=== PATIENT | female | born 1975 ===

== ENCOUNTER 2020-07-10 09:59 | Emergency (ER) | payer SELFPAY ==
[2020-07-10 10:50] VITALS: BP 129/78
--- NOTE | 2020-07-10 11:27 | Emergency Department Report ---
Upper Extremity - HPI Chief Complaint: Extremity Injury, Upper Stated Complaint: INJURY THUMB Time Seen by Provider: 07/10/20 11:13 Upper Extremity: Right Thumb Occurred When: Today Symptoms: Yes Pain with Movement, Yes Numbness (Right thumb), Yes Swelling, Yes Bruising/Ecchymosis, No Deformity, No Limited Range of Movement, No Weakness, No Laceration or Abrasion Other History: 44-year-old female presents to the ER today with complaints of swelling, bruising, and mild numbness to the distal palmar surface of the right thumb. Patient states that she was at work today when she started with a little bit of irritation to the palmar surface of her right thumb and then after a couple minutes noticed that it became bruised and more swollen. She does not recall any injury or any particular bites. 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 She states that she is concerned it may be related to a spider bite. ED Review of Systems ROS: Stated complaint: INJURY THUMB Other details as noted in HPI Comment: All other systems reviewed and negative Musculoskeletal: other (Right thumb pain) Skin: change in color, other (Bruising and swelling to right thumb) ED Past Medical Hx - Past Medical History Previous Medical History?: No - Surgical History Past Surgical History?: No - Social History Smoking Status: Unknown if ever smoked - Medications Home Medications: Home Medications Medication Instructions Recorded Confirmed Last Taken Type Ibuprofen [Motrin] 800 mg PO Q8HR PRN #30 tablet 07/10/20 Unknown Rx cephALEXin [Keflex] 500 mg PO Q8HR #15 cap 07/10/20 Unknown Rx Upper Extremity Exam - Exam General: Vital signs noted. No distress. Alert and acting appropriately. Head and Torso: No Chest/Lungs Abnormality Hand: Yes Digit Tenderness (Tenderness to palpation to the distal palmar surface of the right thumb with mild to moderate amount of bruising to the area and moderate tenderness; no apparent induration, fluctuance or warmth noted.), Yes Normal ROM in Digit(s) (She has full range of motion of the right thumb.), No Digit(s) Deformity CMS Exam: Yes Broken Skin, Yes Normal Distal Pulses, Yes Normal Capillary Refill, Yes Normal Distal Sensation ED Course Vital Signs 07/10/20 10:49 Temperature 98.5 F Pulse Rate 59 L Respiratory 18 Rate Blood Pressure 129/78 [Right] O2 Sat by Pulse 99 Oximetry ED Medical Decision Making - Radiology Data Radiology results: report reviewed Patient: KYLEE RAYO MR#: [id number] : 1975 Acct:[id number] Age/Sex: 44 / F ADM Date: 07/10/20 Loc: ED Attending Dr: Ordering Physician: DIEUDONNE CASTELLANO Date of Service: 07/10/20 Procedure(s): XR finger(s) 2+V RT Accession Number(s): [id number] cc: DIEUDONNE CASTELLANO Fluoro Time In Minutes: RIGHT FINGERS 3 VIEWS INDICATION: thumb bruising. COMPARISON: None. IMPRESSION: No acute osseous or soft tissue abnormality. No significant DJD. Signer Name: Manuel Aranda Jr, MD Signed: 07/10/2020 12:18 PM Workstation Name: [id number] Transcribed By: TTR Dictated By: MANUEL ARANDA JR, MD Electronically Authenticated By: MANUEL ARANDA JR, MD Signed Date/Time: 07/10/201217 DD/ 17 TD/TT: - Medical Decision Making 1229: Pt reports non traumatic bruising,pain and swelling to mcgrath surface of distal right thumb. She works as painter helper. She does not recall being bitten but is concerned for possible spider bite. Xray shows nothing acute. Exact cause of bruising unclear. Will cover with abx as precaution. Discussed xray results and tx plan with patient. She is well appearing, not toxic and not in any distress. Her VS stable. Patient was stable at time of d/c. Critical care attestation.: If time is entered above; I have spent that time in minutes in the direct care of this critically ill patient, excluding procedure time. ED Disposition Clinical Impression: Superficial bruising of thumb Disposition: DC-01 TO HOME OR SELFCARE Is pt being admited?: No Does the pt Need Aspirin: No Condition: Stable Instructions: Contusion Additional Instructions: Take the motrin as prescribed. Take the antibiotics as prescribed. You can apply ice to help with swelling. Recommend limited use of thumb for the next 2-3 days. Follow up with PCP in 1 week. Return to ED if symptoms worsens or changes in anyway. Prescriptions: cephALEXin [Keflex] 500 mg PO Q8HR #15 cap Ibuprofen [Motrin] 800 mg PO Q8HR PRN #30 tablet PRN Reason: pain Referrals: JACE ESCOBAR MD [Staff Physician] - 3-5 Days Forms: Work/School Release Form(ED) Time of Disposition: 12:28
[2020-07-10] MEDS ORDERED: TETANUS,DIPH,PERTUSS(ACELL) VACCINE 0.5 ML SYRINGE IM ONE (11:31)
--- NOTE | 2020-07-10 12:23 | XRay Report ---
RIGHT FINGERS 3 VIEWS INDICATION: thumb bruising. COMPARISON: None. IMPRESSION: No acute osseous or soft tissue abnormality. No significant DJD. Signer Name: Manuel Aranda Jr, MD Signed: 07/10/2020 12:18 PM Workstation Name: [id number]
== END 2020-07-10 13:36 | disposition home or self-care (01) ==
LOC: ED 09:59
DX: S60.011A Contusion of right thumb without damage to nail, initial encounter (principal); Z79.899 Other long term (current) drug therapy; X58.XXXA Exposure to other specified factors, initial encounter; Y93.89 Activity, other specified; Y92.89 Other specified places as the place of occurrence of the external cause; Y99.8 Other external cause status
CPT/HCPCS: 90471; 90715